=== PATIENT | female | born 1950 | race Caucasian/White ===

== ENCOUNTER 2018-11-18 07:34 | Day surgery (SDC) | payer MEDICARE, OTHER ==
[~2018-11-18] VITALS: Ht 165.1 cm; Wt 67.0 kg
[2018-11-18] MEDS ORDERED: DIGESTIVE ENZY220 MG (08:46)
[2018-11-18] MEDS ORDERED: TOCO1000 (08:46)
[2018-11-18] MEDS ORDERED: [UNRECOGNIZED DRUG - MIXTURE] (08:46)
[2018-11-18] MEDS ORDERED: MASTIC GUM (08:47)
[2018-11-18] MEDS ORDERED: VITAMIN C500 MG (08:47)
[2018-11-18] MEDS ORDERED: Vitamin B Comple1 EA (08:47)
[2018-11-18] MEDS ORDERED: VITAMIN B122500 MCG (08:47)
[2018-11-18] MEDS ORDERED: L-GLUTAMINE POWDER (08:48)
[2018-11-18] MEDS ORDERED: KELP (08:48)
[2018-11-18] MEDS ORDERED: MAGNESIUM (08:48)
--- NOTE | 2018-11-18 08:51 | NUR ---
11/18/18 0851 Mallory Benites FIRST IV ATTEMPT IN RIGHT HAND INFILTRATED, BY [facility].RCL. SECOND ATTEMPT IN RIGHT WRIST WAS SUCCESSFUL AND TOLERATED WELL, BY [facility].KDG.
== END 2018-11-18 09:30 | disposition home or self-care (01) ==
LOC: ORSCSDS 07:34
PROVIDERS: Internal Medicine Gastroenterology
PROC: 0DB68ZX Excision of Stomach, Via Natural or Artificial Opening Endoscopic, Diagnostic (ICD-10-PCS; principal; 2018-11-18 09:00)
PROC: 0DB98ZX Excision of Duodenum, Via Natural or Artificial Opening Endoscopic, Diagnostic (ICD-10-PCS; principal; 2018-11-18 09:00)
DX: R10.13 Epigastric pain (principal); K29.80 Duodenitis without bleeding; E06.3 Autoimmune thyroiditis; Z87.891 Personal history of nicotine dependence
CPT/HCPCS: 88305; 88342; J2704; J7120